=== PATIENT | female | born 1955 | race Caucasian/White ===

== ENCOUNTER 2016-10-01 09:37 | Inpatient (IN) | payer OTHER ==
[~2016-10-01] VITALS: Ht 175.3 cm; Wt 111.5 kg
[~2016-10-01 09:37] MED LIST: AMITIZA24 MICROGR PO; BACLOFEN20 MG PO; BENTYL20 MG PO; Bumex PO; CATAPRES0.1 MG PO; CELEBREX200 MG PO; CHILDREN'S MU200 MCG PO; COBAL-10001000 MCG/2 IM; COLACE100 MG PO; COUMADIN3 MG PO; CYANOCOBAL1000 MCG/2 IM; CYANOCOBALAM1000 MCG PO; CYANOCOBALAMIN; Coumadin,Jantoven PO; DIAZEPAM5 MG PO; DURAGESIC100 MCG TD; DURAGESIC100 MICROG TD; DURAGESIC50 MCG TD; Desyrel PO; Duragesic TD; ERGOCALCIF50000 UNIT PO; FLAGYL500 MG PO; FUROSEMIDE40 MG PO; HYDROCHLOROTHIA50 MG PO; K-DUR10 MEQ PO; KEFLEX; Klor-Con M20 PO; LASIX20 MG PO; LEVOTHYROXINE125 MCG PO; Levothroid,Synthroid PO; METOCLOPRAMIDE H5 MG PO; MOBIC15 MG PO; Mitrazol 2% Cream TP; Neurontin PO; OSCAL, OYSTER500 MG PO; OXYCODONE HCL30 MG PO; POTASSIUM CHLO10 ME3 PO; PRILOSEC20 MG PO; PROMETHAZINE HC25 M1 PO; Parcopa 25/100 PO; Percocet 10/325,Endo PO; Phenergan PO; REQUIP1 MG PO; REQUIP2 MG PO; ROXICODONE30 MG PO; Requip PO; SENOKOT S,PE1 TABLET PO; SYNTHROID,LEVO0.5 MG PO; TIZANIDINE HCL4 M1 PO; TIZANIDINE HCL4 MG PO; TOPAMAX100 MG PO; TOPIRAMATE100 MG PO; TUMS ULTRA1000 MG PO; TUMS500 MG PO; TYLENOL EXTRA500 MG PO; UROCIT-K10 MEQ PO; VITAMIN D250000 UNIT PO; VOLTAREN50 M1 PO; WARFARIN SODIUM3 MG PO; ZANAFLEX4 MG PO; ZOFRAN8 MG PO; Zestril,Prinivil PO; Zoloft PO; [UNRECOGNIZED DRUG - OTHER]; [UNRECOGNIZED DRUG - OTHER] PO; oxyCODONE PO
[2016-10-01 10:20] LABS: EOSINOPHIL (%) 3.5 % (0-5); EOSINOPHIL COUNT 0.1 K/uL (0-0.3); HEMATOCRIT 30.2 % (36.0-46.0); IMMATURE GRANULOCYTE (%) 0.3 % (0.0-0.7); INSTRUMENT ABS NEUTROPHIL CT 2.6 K/uL; LYMPHOCYTE COUNT 0.7 K/uL (1.0-2.8); MCHC 32.1 G/DL (30.0-36.0); MCV 99.7 FL (83-99); MEAN PLAT.VOLUME 11.1 uM^3 (9.5-12.4); MONOCYTE (%) 7.6 % (3-12); MONOCYTE COUNT 0.3 K/uL (0-0.8); NEUTROPHIL (%) 70.5 % (45-76); NEUTROPHIL COUNT 2.6 K/uL (1.8-6.4); PLATELET COUNT 95 K/uL (156-360); RBC DIS.WIDTH-CV 13.2 % (11.8-14.6); RBC DIS.WIDTH-SD 48.6 % (39-53); RED BLOOD COUNT 3.03 M/uL (3.80-5.20); WHITE BLOOD COUNT 3.7 K/uL (4.1-10.2)
[2016-10-01 10:30] LABS: CHLORIDE 115 mEq/L (99-109); POTASSIUM 4.2 mEq/L (3.7-5.4); SODIUM 142 mEq/L (136-147)
[2016-10-01 10:33] LABS: GLUCOSE 106 mg/dL (70-99)
[2016-10-01 10:34] LABS: ANION GAP 7 MEQ/L (2-14)
[2016-10-01 10:35] LABS: TOTAL BILIRUBIN 0.2 mg/dL (0.0-1.0)
[2016-10-01 10:36] LABS: ALKALINE PHOSPHATASE 85 IU/L (3-129); GFR ESTIMATE (CALCULATED) 33 mL/min/
[2016-10-01 10:37] LABS: UREA NITROGEN (BUN) 49 mg/dL (9-23)
[2016-10-01 10:40] LABS: LIPASE 27 U/L (1.0-51.0)
[2016-10-01 10:42] LABS: TROP-I INTERPRETATION NEGATIVE; TROPONIN-I 0.02 ng/mL (0.0-0.30)
[2016-10-01 10:56] LABS: ADD MIUA? NO; BILIRUBIN NEGATIVE; BLOOD NEGATIVE; COLOR YELLOW ((YELLOW)); GLUCOSE (STRIP) NEGATIVE; KETONES NEGATIVE; LEUKOCYTES NEGATIVE; NITRITE NEGATIVE; PROTEIN (STRIP) NEGATIVE; SPECIFIC GRAVITY 1.013 (1.000-1.030); UCUL ADDED? NO; UROBILINOGEN 0.2 MG/DL (0.2-1.0)
[2016-10-01 13:39] LABS: TROP-I INTERPRETATION NEGATIVE; TROPONIN-I 0.04 ng/mL (0.0-0.30)
[2016-10-01 14:04] LABS: INTER. NORMALIZED RATIO 2.4; PROTHROMBIN TIME 25.1 (9.2-11.2)
[2016-10-01] MEDS ORDERED: CALCIUM CITRAT200 MG PO (14:20)
[2016-10-01] MEDS ORDERED: HYDROCHLOROTHIA25 MG PO (14:23)
[2016-10-01] MEDS ORDERED: ROPINIROLE HCL2 M1 PO ×2 (14:26)
[2016-10-01] MEDS ORDERED: WARFARIN SODIUM1 MG PO ×2 (14:28→14:29)
[2016-10-01] MEDS ORDERED: RESTASIS 01 DROP/0.4 BOTH EYES (14:29)
[2016-10-01] MEDS ORDERED: TUMS500 MG PO (14:29)
[2016-10-01] MEDS ORDERED: PARICALCITOL1 MCG PO (14:31)
[2016-10-01] MEDS ORDERED: LORATADINE10 M2 PO (14:32)
[2016-10-01] MEDS ORDERED: NATURAL BALANCE15 M1 BOTH EYES (14:32)
[2016-10-01] MEDS ORDERED: PLAQUENIL200 MG PO (14:32)
[2016-10-01] MEDS ORDERED: HYDROMORPHONE HC8 MG PO (14:33)
[2016-10-01] MEDS ORDERED: DOXAZOSIN MESYLA2 MG PO (14:34)
[2016-10-01] MEDS ORDERED: GUMMI BEAR MUL1 EACH PO (14:34)
[2016-10-01] MEDS ORDERED: PROMETHAZINE HC25 M1 PO (14:36)
[2016-10-01 16:10] VITALS: BP 146/73
[2016-10-01 16:19] VITALS: BP 146/73
[2016-10-01 20:13] LABS: Estimated Average Glucose 100 mg/dL (70-123); HEMOGLOBIN A1c (GLYCOHEMOGLOB) 5.1 % HGB (Below 5.7)
[2016-10-01 20:20] LABS: TROP-I INTERPRETATION NEGATIVE; TROPONIN-I 0.02 ng/mL (0.0-0.30)
[2016-10-01 23:46] VITALS: BP 135/70
[2016-10-02 02:41] LABS: TROP-I INTERPRETATION NEGATIVE; TROPONIN-I 0.02 ng/mL (0.0-0.30)
[2016-10-02 03:30] VITALS: BP 127/67
[2016-10-02 05:22] LABS: HEMATOCRIT 29.8 % (36.0-46.0); MCH 31.9 PG (29.0-34.0); MCHC 32.2 G/DL (30.0-36.0); MEAN PLAT.VOLUME 11.3 uM^3 (9.5-12.4); PLATELET COUNT 91 K/uL (156-360); RBC DIS.WIDTH-CV 13.2 % (11.8-14.6); RED BLOOD COUNT 3.01 M/uL (3.80-5.20); WHITE BLOOD COUNT 2.9 K/uL (4.1-10.2)
[2016-10-02 05:47] LABS: ANION GAP 6 MEQ/L (2-14); CHLORIDE 113 MEQ/L (99-109); GFR ESTIMATE (CALCULATED) 44 mL/min/; GLUCOSE 96 mg/dL (70-99); SAMPLE HEMOLYSIS CHECK 0; SAMPLE ICTERIC CHECK 0; SAMPLE LIPEMIA CHECK 0; SODIUM 142 MEQ/L (136-147); UREA NITROGEN (BUN) 35 mg/dL (9-23)
[2016-10-02 06:17] LABS: INTER. NORMALIZED RATIO 2.8; PROTHROMBIN TIME 29.4 (9.2-11.2)
[2016-10-02 07:27] VITALS: BP 127/60
[2016-10-02] MEDS ORDERED: METRONIDAZOLE500 MG PO (08:16)
== END 2016-10-02 16:39 | disposition home or self-care (01) | DRG 392 ==
LOC: EME → EDBD 09:37 → EDOF 14:43 → 5WEST 14:43
PROVIDERS: Emergency Medicine; Nurse Practitioner Adult Health
DX: K52.9 Noninfective gastroenteritis and colitis, unspecified (principal); R10.12 Left upper quadrant pain; R07.2 Precordial pain; I12.9 Hypertensive chronic kidney disease with stage 1 through stage 4 chronic kidney disease, or unspecified chronic kidney disease; E03.9 Hypothyroidism, unspecified; G89.4 Chronic pain syndrome; D64.9 Anemia, unspecified; D69.6 Thrombocytopenia, unspecified; N18.3 Chronic kidney disease, stage 3 (moderate); M16.11 Unilateral primary osteoarthritis, right hip; N17.9 Acute kidney failure, unspecified; J45.909 Unspecified asthma, uncomplicated; M79.7 Fibromyalgia; K21.9 Gastro-esophageal reflux disease without esophagitis; Z88.1 Allergy status to other antibiotic agents; Z88.8 Allergy status to other drugs, medicaments and biological substances; Z86.718 Personal history of other venous thrombosis and embolism; Z86.711 Personal history of pulmonary embolism; Z79.01 Long term (current) use of anticoagulants; Z96.642 Presence of left artificial hip joint; Z90.49 Acquired absence of other specified parts of digestive tract; E86.9 Volume depletion, unspecified; Z96.653 Presence of artificial knee joint, bilateral; Z98.84 Bariatric surgery status; G25.81 Restless legs syndrome
CPT/HCPCS: 71010; 73502; 74177; 80048; 80053; 81003; 83036; 83690; 84484; 85025; 85027; 85610; 93005; G0378; J2405; J3010; J7030; J7120; S0028

== ENCOUNTER → 2016-12-11 | Outpatient (CLI) | payer OTHER ==
[~2016-12-11] MED LIST changes: +CALCIUM CITRAT200 MG PO; +DOXAZOSIN MESYLA2 MG PO; +GUMMI BEAR MUL1 EACH PO; +HYDROCHLOROTHIA25 MG PO; +HYDROMORPHONE HC8 MG PO; +LORATADINE10 M2 PO; +METRONIDAZOLE500 MG PO; +NATURAL BALANCE15 M1 BOTH EYES; +PARICALCITOL1 MCG PO; +PLAQUENIL200 MG PO; +RESTASIS 01 DROP/0.4 BOTH EYES; +ROPINIROLE HCL2 M1 PO; +WARFARIN SODIUM1 MG PO
== END | disposition home or self-care (01) ==
DX: M16.11 Unilateral primary osteoarthritis, right hip (principal); R26.2 Difficulty in walking, not elsewhere classified; M25.551 Pain in right hip; M25.651 Stiffness of right hip, not elsewhere classified; M62.81 Muscle weakness (generalized); Z74.1 Need for assistance with personal care
CPT/HCPCS: 97110 GP; 97150 GO; 97161 GP; 97165 GO; G8978 GP; G8979 GP; G8980 GP; G8987 GO; G8988 GO; G8989 GO

== ENCOUNTER 2017-08-09 12:45 | Emergency (ER) | payer OTHER ==
[~2017-08-09] VITALS: Ht 170.2 cm; Wt 101.6 kg
[2017-08-09 13:17] LABS: BASOPHIL (%) 0.5 % (0-1); EOSINOPHIL (%) 3.3 % (0-5); EOSINOPHIL COUNT 0.1 K/uL (0-0.3); HEMOGLOBIN 10.9 G/DL (11.9-15.5); IMMATURE GRANULOCYTE (%) 0.3 % (0.0-0.7); LYMPHOCYTE (%) 33.5 % (15-42); LYMPHOCYTE COUNT 1.3 K/uL (1.0-2.8); MCH 31.8 PG (29.0-34.0); MCHC 34.1 G/DL (30.0-36.0); MCV 93.3 FL (83-99); MONOCYTE (%) 6.4 % (3-12); MONOCYTE COUNT 0.3 K/uL (0-0.8); NEUTROPHIL COUNT 2.2 K/uL (1.8-6.4); PLATELET COUNT 113 K/uL (156-360); RBC DIS.WIDTH-CV 13.6 % (11.8-14.6); RBC DIS.WIDTH-SD 46.6 % (39-53); RED BLOOD COUNT 3.43 M/uL (3.80-5.20); WHITE BLOOD COUNT 3.9 K/uL (4.1-10.2)
[2017-08-09 13:29] LABS: ALBUMIN 3.3 g/dL (3.2-4.8); CHLORIDE 111 mEq/L (99-109); SODIUM 143 mEq/L (136-147)
[2017-08-09 13:30] LABS: MAGNESIUM 1.5 mg/dL (1.3-2.7)
[2017-08-09 13:31] LABS: GLUCOSE 97 mg/dL (70-99)
[2017-08-09 13:32] LABS: TOTAL PROTEIN 6.2 g/dL (6.4-8.3)
[2017-08-09 13:33] LABS: TOTAL BILIRUBIN 0.5 mg/dL (0.0-1.0)
[2017-08-09 13:35] LABS: ALKALINE PHOSPHATASE 105 IU/L (3-129); CREATININE 1.3 mg/dL (0.6-1.3); GFR ESTIMATE (CALCULATED) 44 mL/min/
[2017-08-09 13:36] LABS: UREA NITROGEN (BUN) 27 mg/dL (9-23)
[2017-08-09 13:37] LABS: AST (GOT) 34 IU/L (2-34)
[2017-08-09 13:38] LABS: ALT (GPT) 28 IU/L (3-49)
[2017-08-09 13:39] LABS: APPEARANCE CLEAR ((CLEAR)); BILIRUBIN NEGATIVE; BLOOD NEGATIVE; COLOR YELLOW ((YELLOW)); GLUCOSE (STRIP) NEGATIVE; KETONES NEGATIVE; LEUKOCYTES NEGATIVE; NITRITE NEGATIVE; PROTEIN (STRIP) NEGATIVE; SPECIFIC GRAVITY 1.017 (1.000-1.030); UCUL ADDED? NO; UROBILINOGEN 0.2 MG/DL (0.2-1.0)
[2017-08-09 13:40] LABS: TROP-I INTERPRETATION NEGATIVE; TROPONIN-I 0.06 ng/mL (0.0-0.30)
[2017-08-09 19:57] VITALS: BP 150/78
== END 2017-08-09 19:57 | disposition home or self-care (01) ==
LOC: EME 12:45
PROVIDERS: Emergency Medicine
DX: K59.00 Constipation, unspecified (principal); R11.2 Nausea with vomiting, unspecified; E87.6 Hypokalemia; N20.0 Calculus of kidney; Z87.442 Personal history of urinary calculi; J45.909 Unspecified asthma, uncomplicated; I12.9 Hypertensive chronic kidney disease with stage 1 through stage 4 chronic kidney disease, or unspecified chronic kidney disease; N18.9 Chronic kidney disease, unspecified; E03.9 Hypothyroidism, unspecified; K21.9 Gastro-esophageal reflux disease without esophagitis; M79.7 Fibromyalgia; G43.909 Migraine, unspecified, not intractable, without status migrainosus; Z79.01 Long term (current) use of anticoagulants; Z86.718 Personal history of other venous thrombosis and embolism; Z87.39 Personal history of other diseases of the musculoskeletal system and connective tissue; Z86.79 Personal history of other diseases of the circulatory system; Z98.84 Bariatric surgery status; Z96.642 Presence of left artificial hip joint; Z96.653 Presence of artificial knee joint, bilateral; Z90.49 Acquired absence of other specified parts of digestive tract; Z88.1 Allergy status to other antibiotic agents; Z88.0 Allergy status to penicillin
CPT/HCPCS: 74176; 80053; 81003; 83735; 84484; 85025; 93005; 99281; 99285; J3480; J7120

== ENCOUNTER → 2017-09-20 | Outpatient (CLI) | payer OTHER | END | disposition home or self-care (01) | LOC: NUC 08:56 | DX: E07.9 Disorder of thyroid, unspecified (principal); E83.51 Hypocalcemia | CPT/HCPCS: 78072; A9500 ==